=== PATIENT | female | born 1950 | race Caucasian/White ===

== ENCOUNTER → 2017-10-16 | Outpatient (CLI) | payer MEDICARE, BC ==
[~2017-10-16] VITALS: Ht 166.4 cm; Wt 92.8 kg
[~2017-10-16] MED LIST: ADIPEX-P37.5 MG PO; ASPIRIN E.C. 8181 MG PO; CALCIUM CARBON650 M2; COZAAR 50MG50 MG/TAB PO; ESTRACE0.5 MG PO; FASTIN30 MG PO; FLINTSTONES COM1 CT1 PO; GLUCOPHAGE XR500 M1 PO; GLUCOPHAGE1000 MG PO; GLUCOPHAGE500 MG/TAB PO; KRILL OIL 5001 EACH PO; MELATONIN5 M1 SL; NORVASC 5MG5 MG/TAB PO; PHENTERMINE15 MG PO; TOPAMAX 25MG25 M1 PO; VITAMIN B122500 MCG SL; VITAMIN D32000 I1 PO; ZIAC 10/6.25M1 UDTAB PO
[2017-10-16 09:04] VITALS: BP 144/88; PULSE 76
== END ==
LOC: LIGHT 08:51
DX: E88.81 Metabolic syndrome and other insulin resistance (principal); I10 Essential (primary) hypertension; E66.01 Morbid (severe) obesity due to excess calories; Z68.34 Body mass index [BMI] 34.0-34.9, adult; Z71.3 Dietary counseling and surveillance; G47.33 Obstructive sleep apnea (adult) (pediatric)
CPT/HCPCS: G0463

== ENCOUNTER → 2017-11-13 | Outpatient (CLI) | payer MEDICARE, BC ==
[~2017-11-13] VITALS: Ht 166.4 cm; Wt 89.8 kg
[2017-11-13 13:24] VITALS: BP 150/86; PULSE 80
== END ==
LOC: LIGHT 09:09
DX: E88.81 Metabolic syndrome and other insulin resistance (principal); I10 Essential (primary) hypertension; E66.01 Morbid (severe) obesity due to excess calories; Z68.33 Body mass index [BMI] 33.0-33.9, adult; Z71.3 Dietary counseling and surveillance; G47.33 Obstructive sleep apnea (adult) (pediatric)
CPT/HCPCS: G0463

== ENCOUNTER → 2018-01-15 | Outpatient (CLI) | payer MEDICARE, BC ==
[~2018-01-15] VITALS: Ht 166.4 cm; Wt 86.2 kg
[~2018-01-15] MED LIST changes: -GLUCOPHAGE1000 MG PO
[2018-01-15 08:52] VITALS: BP 124/84; PULSE 68
== END ==
LOC: LIGHT 08:38
DX: E88.81 Metabolic syndrome and other insulin resistance (principal); I10 Essential (primary) hypertension; E66.01 Morbid (severe) obesity due to excess calories; Z68.31 Body mass index [BMI] 31.0-31.9, adult; Z71.3 Dietary counseling and surveillance; G47.33 Obstructive sleep apnea (adult) (pediatric)
CPT/HCPCS: G0463

== ENCOUNTER → 2018-03-19 | Outpatient (CLI) | payer MEDICARE, BC ==
[~2018-03-19] VITALS: Ht 166.4 cm; Wt 83.7 kg
[2018-03-19 09:11] VITALS: BP 126/74; PULSE 76
== END ==
LOC: LIGHT 08:52
DX: E88.81 Metabolic syndrome and other insulin resistance (principal); I10 Essential (primary) hypertension; E66.01 Morbid (severe) obesity due to excess calories; Z68.30 Body mass index [BMI] 30.0-30.9, adult; Z71.3 Dietary counseling and surveillance; G47.33 Obstructive sleep apnea (adult) (pediatric)
CPT/HCPCS: G0463

== ENCOUNTER → 2018-05-21 | Outpatient (CLI) | payer MEDICARE, BC ==
[~2018-05-21] VITALS: Ht 166.4 cm; Wt 81.4 kg
[2018-05-21 09:12] VITALS: BP 122/70; PULSE 72
== END ==
LOC: LIGHT 08:08
DX: E88.81 Metabolic syndrome and other insulin resistance (principal); I10 Essential (primary) hypertension; G47.33 Obstructive sleep apnea (adult) (pediatric); E66.9 Obesity, unspecified; Z68.29 Body mass index [BMI] 29.0-29.9, adult; Z71.3 Dietary counseling and surveillance
CPT/HCPCS: G0463

== ENCOUNTER → 2018-07-30 | Outpatient (CLI) | payer MEDICARE, BC ==
[~2018-07-30] VITALS: Ht 166.4 cm; Wt 80.7 kg
[2018-07-30 15:02] VITALS: BP 144/80; PULSE 84
== END ==
LOC: LIGHT 07-16 10:43
DX: E88.81 Metabolic syndrome and other insulin resistance (principal); I10 Essential (primary) hypertension; G47.33 Obstructive sleep apnea (adult) (pediatric); E66.9 Obesity, unspecified; Z68.29 Body mass index [BMI] 29.0-29.9, adult; Z71.3 Dietary counseling and surveillance
CPT/HCPCS: G0463

== ENCOUNTER → 2018-09-24 | Outpatient (CLI) | payer MEDICARE, BC ==
[~2018-09-24] VITALS: Ht 166.4 cm; Wt 83.0 kg
[~2018-09-24] MED LIST changes: +[UNRECOGNIZED DRUG - REMARK]
[2018-09-24 09:56] VITALS: BP 136/74; PULSE 76
== END ==
LOC: LIGHT 09:48
DX: E88.81 Metabolic syndrome and other insulin resistance (principal); I10 Essential (primary) hypertension; G47.33 Obstructive sleep apnea (adult) (pediatric); E66.01 Morbid (severe) obesity due to excess calories; Z68.30 Body mass index [BMI] 30.0-30.9, adult; Z71.3 Dietary counseling and surveillance
CPT/HCPCS: G0463

== ENCOUNTER → 2018-10-22 | Outpatient (CLI) | payer MEDICARE, BC ==
[~2018-10-22] VITALS: Ht 166.4 cm; Wt 83.0 kg
[~2018-10-22] MED LIST changes: +AZILECT0.5 MG; +SINEMET CR1 UDTAB.S1 PO; -[UNRECOGNIZED DRUG - REMARK]
[2018-10-22 10:33] VITALS: BP 130/76; PULSE 72
== END ==
LOC: LIGHT 10:31
DX: E88.81 Metabolic syndrome and other insulin resistance (principal); I10 Essential (primary) hypertension; G47.33 Obstructive sleep apnea (adult) (pediatric); E66.01 Morbid (severe) obesity due to excess calories; Z68.30 Body mass index [BMI] 30.0-30.9, adult; Z71.3 Dietary counseling and surveillance
CPT/HCPCS: G0463

== ENCOUNTER → 2018-12-17 | Outpatient (CLI) | payer MEDICARE, BC ==
[~2018-12-17] VITALS: Ht 166.4 cm; Wt 84.6 kg
[~2018-12-17] MED LIST changes: -AZILECT0.5 MG; +AZILECT1 MG PO
[2018-12-17 13:35] VITALS: BP 128/64; PULSE 80
== END ==
LOC: LIGHT 12-03 14:25
DX: E88.81 Metabolic syndrome and other insulin resistance (principal); I10 Essential (primary) hypertension; G47.33 Obstructive sleep apnea (adult) (pediatric); E66.01 Morbid (severe) obesity due to excess calories; Z68.30 Body mass index [BMI] 30.0-30.9, adult; Z71.3 Dietary counseling and surveillance
CPT/HCPCS: G0463

== ENCOUNTER → 2019-02-04 | Outpatient (CLI) | payer MEDICARE, BC ==
[~2019-02-04] VITALS: Ht 166.4 cm; Wt 83.2 kg
[2019-02-04 09:30] VITALS: BP 132/78; PULSE 76
== END ==
LOC: LIGHT 09:19
DX: E88.81 Metabolic syndrome and other insulin resistance (principal); I10 Essential (primary) hypertension; G47.33 Obstructive sleep apnea (adult) (pediatric); E66.01 Morbid (severe) obesity due to excess calories; Z68.30 Body mass index [BMI] 30.0-30.9, adult; Z71.3 Dietary counseling and surveillance
CPT/HCPCS: G0463

== ENCOUNTER → 2019-04-01 | Outpatient (CLI) | payer MEDICARE, BC ==
[~2019-04-01] VITALS: Ht 166.4 cm; Wt 81.9 kg
[2019-04-01 09:48] VITALS: BP 132/80; PULSE 72
== END ==
LOC: LIGHT 09:32
DX: E88.81 Metabolic syndrome and other insulin resistance (principal); I10 Essential (primary) hypertension; G47.33 Obstructive sleep apnea (adult) (pediatric); E66.01 Morbid (severe) obesity due to excess calories; Z68.29 Body mass index [BMI] 29.0-29.9, adult; Z71.3 Dietary counseling and surveillance
CPT/HCPCS: G0463

== ENCOUNTER → 2019-06-03 | Outpatient (CLI) | payer MEDICARE, BC ==
[~2019-06-03] VITALS: Ht 166.4 cm; Wt 81.6 kg
[~2019-06-03] MED LIST changes: +SINEMET 25/101 UDTAB PO
[2019-06-03 09:05] VITALS: BP 110/74; PULSE 68
== END ==
LOC: LIGHT 08:47
DX: E88.81 Metabolic syndrome and other insulin resistance (principal); I10 Essential (primary) hypertension; G47.33 Obstructive sleep apnea (adult) (pediatric); E66.01 Morbid (severe) obesity due to excess calories; Z68.29 Body mass index [BMI] 29.0-29.9, adult; Z71.3 Dietary counseling and surveillance
CPT/HCPCS: G0463

== ENCOUNTER → 2019-08-05 | Outpatient (CLI) | payer MEDICARE, BC ==
[~2019-08-05] VITALS: Ht 166.4 cm; Wt 82.6 kg
[2019-08-05 09:06] VITALS: BP 140/86; PULSE 80
== END ==
LOC: LIGHT 08:47
DX: E88.81 Metabolic syndrome and other insulin resistance (principal); I10 Essential (primary) hypertension; G47.33 Obstructive sleep apnea (adult) (pediatric); E66.01 Morbid (severe) obesity due to excess calories; Z68.29 Body mass index [BMI] 29.0-29.9, adult; Z71.3 Dietary counseling and surveillance
CPT/HCPCS: G0463

== ENCOUNTER → 2019-12-02 | Outpatient (CLI) | payer MEDICARE, BC ==
[~2019-12-02] VITALS: Ht 166.4 cm; Wt 87.3 kg
[2019-12-02 09:03] VITALS: BP 154/84; PULSE 68
== END ==
LOC: LIGHT 08:55
DX: Z68.31 Body mass index [BMI] 31.0-31.9, adult (principal); E88.81 Metabolic syndrome and other insulin resistance; I10 Essential (primary) hypertension; G47.30 Sleep apnea, unspecified
CPT/HCPCS: G0463

== ENCOUNTER → 2020-03-02 | Outpatient (CLI) | payer MEDICARE, BC ==
[~2020-03-02] VITALS: Ht 166.4 cm; Wt 84.4 kg
[~2020-03-02] MED LIST changes: +COMTAN 200MG T200 MG PO; +DESYREL 50MG50 MG PO
[2020-03-02 10:33] VITALS: BP 112/56; PULSE 72
== END ==
LOC: LIGHT 10:21
DX: E66.8 Other obesity (principal); Z68.30 Body mass index [BMI] 30.0-30.9, adult; I10 Essential (primary) hypertension
CPT/HCPCS: G0463

== ENCOUNTER → 2020-04-27 | Outpatient (CLI) | payer MEDICARE, BC ==
[~2020-04-27] VITALS: Ht 166.4 cm; Wt 82.8 kg
[2020-04-27 14:30] VITALS: BP 126/64; PULSE 60
== END ==
LOC: LIGHT 04-13 14:54
DX: E66.8 Other obesity (principal); Z68.29 Body mass index [BMI] 29.0-29.9, adult; E88.81 Metabolic syndrome and other insulin resistance; I10 Essential (primary) hypertension; G47.30 Sleep apnea, unspecified
CPT/HCPCS: G0463

== ENCOUNTER → 2020-06-15 | Outpatient (CLI) | payer MEDICARE, BC ==
[~2020-06-15] VITALS: Ht 166.4 cm; Wt 81.0 kg
[2020-06-15 14:09] VITALS: BP 128/70; PULSE 80
== END ==
LOC: LIGHT 11:09
DX: E66.8 Other obesity (principal); Z68.29 Body mass index [BMI] 29.0-29.9, adult; E88.81 Metabolic syndrome and other insulin resistance; I10 Essential (primary) hypertension
CPT/HCPCS: G0463